=== PATIENT | female | born 1950 | race Caucasian/White ===

== ENCOUNTER 2016-07-31 04:25 | Emergency (ER) ==
[2016-07-31] MEDS ORDERED: KEFLEX PO ONE (05:01)
[2016-07-31] MEDS ORDERED: PERCOCET-5 PO ONE (05:01)
[2016-07-31] MEDS ORDERED: NAPROSYN PO ONE (05:02)
[2016-07-31] MEDS ORDERED: NAPROSYN ONE (05:08)
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
[2016-07-31] MEDS ORDERED: BACITRACIN OINTMENT ONE (05:24)
[2016-07-31 05:56] VITALS: BP 130/75
== END 2016-07-31 05:53 | disposition home or self-care (01) ==
LOC: P.ED 04:25
DX: T25.322A Burn of third degree of left foot, initial encounter (principal); X10.2XXA Contact with fats and cooking oils, initial encounter; I10 Essential (primary) hypertension; K21.9 Gastro-esophageal reflux disease without esophagitis; M81.0 Age-related osteoporosis without current pathological fracture; Z79.899 Other long term (current) drug therapy